=== PATIENT | female | born 1945 ===

== ENCOUNTER → 2016-06-16 | Outpatient (CLI) | payer BC ==
--- NOTE | 2016-06-16 15:48 | MAMMOGRAPHY REPORT ---
BILATERAL DIGITAL SCREENING MAMMOGRAM WITH CAD: 06/16/2016 CLINICAL HISTORY: Routine screening examination. TECHNIQUE: Bilateral CC and MLO views were obtained. Current study was also evaluated with a Comput er Aided Detection (CAD) system. COMPARISON: Comparison is made to exams dated: 05/30/2015 mammogram - [facility], mammogram, 05/30/2013 mammogram - [facility], 03/31/2012 mammogram, 07/17/2010 mammogram, and 09/25/2009 mammogram - [facility]. BREAST COMPOSITION: The tissue of both breasts is heterogeneously dense, which may obscure small ma sses. FINDINGS: A linear scar marker overlies the upper outer posterior right breast, denoting an area of previous surgical excision. Surgical clips remain in place. There are stable grouped microcalcific ations in the upper outer posterior right breast. Stable nodularity bilaterally. Other benign rim calcifications are also scattered bilaterally. No new suspicious mass, architectural distortion or cluster of microcalcifications is seen. IMPRESSION: ACR BI-RADS CATEGORY 1: NEGATIVE There is no mammographic evidence of malignancy. A 1 year screening mammogram is recommended. The p atient will receive written notification of the results. Approximately 10% of breast cancers are not detected with mammography. A negative mammographic repor t should not delay biopsy if a clinically suggestive mass is present. Zee Reynoso M.D. ay/:06/16/2016 15:15:17 Manager Department: Rochelle FRANCES)(Crista), [facility] letter sent: Normal 1/2 BI-RADS Code: ACR BI-RADS Category 1: Negative
== END | disposition home or self-care (01) ==
LOC: C.MAMM 14:06
DX: Z12.31 Encounter for screening mammogram for malignant neoplasm of breast (principal)

== ENCOUNTER → 2017-06-23 | Outpatient (CLI) | payer BC ==
--- NOTE | 2017-06-23 15:22 | MAMMOGRAPHY REPORT ---
BILATERAL DIGITAL SCREENING MAMMOGRAM TOMOSYNTHESIS WITH CAD: 06/23/2017 CLINICAL HISTORY: Routine screening. Patient has no complaints. TECHNIQUE: Breast tomosynthesis in addition to standard 2D mammography was performed. Current study was also evaluated with a Computer Aided Detection (CAD) system. COMPARISON: Comparison is made to exams dated: 06/16/2016 mammogram, 05/30/2015 mammogram - [facility], 05/11/2014 mammogram, 05/30/2013 mammogram - [facility], 03/31/2012 mammogram, and mammogram - [facility]. BREAST COMPOSITION: The tissue of both breasts is heterogeneously dense, which may obscure small mas ses. FINDINGS: There is expected architectural distortion and surgical clips in the upper outer posterior right breast, at the site of prior excision. There are scattered round and rim calcifications bilate rally. There are multiple bilateral circumscribed subcentimeter masses scattered in the breasts, whi ch is a typically benign mammographic pattern, most likely representing fluctuating cysts. No suspic ious spiculated or irregular mass, architectural distortion or new cluster of microcalcifications is seen. IMPRESSION: ACR BI-RADS CATEGORY 1: NEGATIVE There is no mammographic evidence of malignancy. A 1 year screening mammogram is recommended. The pa tient will receive written notification of the results. Approximately 10% of breast cancers are not detected with mammography. A negative mammographic report should not delay biopsy if a clinically suggestive mass is present. Zee Reynoso M.D. ay/:06/23/2017 14:40:34 Spice Room Worker: Donna DOUGLAS(Chely)(Crista), [facility] letter sent: Normal 1/2 BI-RADS Code: ACR BI-RADS Category 1: Negative
== END | disposition home or self-care (01) ==
LOC: C.MAMM 13:21
DX: Z12.31 Encounter for screening mammogram for malignant neoplasm of breast (principal)